=== PATIENT | male | born 1970 | race Caucasian/White ===

== ENCOUNTER → 2020-01-07 | Outpatient (CLI) | payer OTHER ==
[2020-01-07 11:18] LABS: Basophils # (A) 0.1 k/uL (0-0.2); Basophils % (A) 1 %; Eosinophils # (A) 0.2 k/uL (0-0.7); Eosinophils % (A) 4 %; HCT 43.8 % (39.0-53.0); HGB 14.5 gm/dL (13.0-17.5); Lymphocytes # (A) 1.5 k/uL (1.0-4.8); Lymphocytes % (A) 25 %; MCH 34.3 pg (25.0-35.0); MCHC 33.1 g/dL (31.0-37.0); MCV 103.5 fL (80.0-100.0); Macrocytosis Slight; Monocytes # (A) 0.5 k/uL (0-1.0); Monocytes % (A) 8 %; Neutrophils # (A) 3.8 k/uL (1.3-7.7); Neutrophils % (A) 61 %; Platelet Count 177 k/uL (150-450); RBC 4.23 m/uL (4.30-5.90); RDW 12.5 % (11.5-15.5); WBC 6.3 k/uL (3.8-10.6)
[2020-01-07 18:56] LABS: Erythrocyte Sedimentation Rate 8 mm/Hr (0-20)
[2020-01-07 18:58] LABS: African American GFR (CKD) 80.7 (60.0-200.0); Albumin 4.8 g/dL (3.80-4.90); Albumin/Globulin Ratio 1.92 (1.60-3.17); Anion Gap 10.2 mmol/L (4.00-12.00); BUN/Creat Ratio 22.5 Ratio (12.00-20.00); C Reactive Protein 0.4 mg/dL (0.0-0.8); Calcium 9.7 mg/dL (8.7-10.3); Carbon Dioxide 25.8 mmol/L (21.6-31.8); Chol/HDL Ratio 5.14; Globulin 2.5 g/dL (1.6-3.3); LDL Cholesterol,Calculated 195.2 mg/dL (0.0-131.0); Non-African American GFR(CKD) 69.6 (60.0-200.0); Phosphorus 3.4 mg/dL (2.4-5.1); Potassium 4.6 mmol/L (3.5-5.5); Total Bilirubin 0.6 mg/dL (0.3-1.2); Total Protein 7.3 g/dL (6.2-8.2); VLDL Calculation 15.8 mg/dL (5.00-40.00)
[2020-01-07 19:49] LABS: Hemoglobin A1C 5.8 % (4.0-6.0)
== END | disposition home or self-care (01) ==
LOC: LABWHC1 09:30
PROVIDERS: ATTEND Nurse Practitioner Family
DX: I10 Essential (primary) hypertension (principal); R73.9 Hyperglycemia, unspecified; E78.49 Other hyperlipidemia; R53.83 Other fatigue; M35.3 Polymyalgia rheumatica; R19.7 Diarrhea, unspecified; Z20.828 Contact with and (suspected) exposure to other viral communicable diseases
CPT/HCPCS: 80061; 80053; 85652; 84443; 82607; 82150; 83690; 83735; 84100; 85025; 86140; 86431; 82272; 86038; 87045; 87329; 87328; 87046; 83036; 36415; U0003; C9803

== ENCOUNTER → 2020-01-15 | Outpatient (CLI) | payer OTHER ==
[2020-01-15 21:05] LABS: ALT 244 U/L (10-49); AST 158 U/L (14-35); Albumin/Globulin Ratio 1.92 (1.60-3.17); Alkaline Phosphatase 52 U/L (41-126); Bilirubin, Conjugated <0.20 mg/dL (0.20-0.40); Globulin 2.4 g/dL (1.6-3.3); Total Bilirubin 0.4 mg/dL (0.2-1.2)
[2020-01-16 03:16] LABS: Hepatitis A Antibody IgM Non-Reactive (Non-Reactive); Hepatitis B Core IgM Non-Reactive (Non-Reactive); Hepatitis B Surface Antigen Non-Reactive (Non-Reactive); Hepatitis C IgG Antibody Non-Reactive (Non-Reactive)
== END | disposition home or self-care (01) ==
LOC: LABWHC1 12:46
PROVIDERS: ATTEND Nurse Practitioner Family
DX: R79.89 Other specified abnormal findings of blood chemistry (principal); U07.1 COVID-19
CPT/HCPCS: 36415; 80074; 80076

== ENCOUNTER 2020-01-19 07:18 | Day surgery (SDC) | payer OTHER ==
[2020-01-15 10:23] VITALS: BMI 33.0
[~2020-01-19 07:18] MED LIST: LACTATED RINGERS 1,000 ML IV SCH; LIDOCAINE 1% (10MG/ML) FOR IV START INTRADERMA PRN
[2020-01-19 07:38] VITALS: TEMP 97.5
[2020-01-19] MEDS ORDERED: LIDOCAINE 1% INJ 10MG/ML (20 ML MDV) ONE (08:16)
[2020-01-19] MEDS ORDERED: PROPOFOL 10 MG/ML 50 ML VIAL IV ONE (08:16)
[2020-01-19] MEDS ORDERED: IV FLUID CONTINUATION 400 ML IV ONE (08:49)
--- NOTE | 2020-01-19 08:59 | P.PCN ---
Date of Procedure: 01/19/20 Description of Procedure: BRIEF HISTORY: Patient is a 49-year-old male with no prior history of colonoscopy who presents for initial screening for malignant neoplasm in the colon due to a family history of colon cancer in his father. Father was diagnosed with colon cancer at the age of 70. Denies any change in bowel habits, blood per rectum or abdominal pain. He had been having some diarrhea but reports that this resolved after stopping metformin. PROCEDURE PERFORMED: Colonoscopy with polypectomy. PREOPERATIVE DIAGNOSIS: Family history of colon cancer (father diagnosed with colon cancer at 70), diarrhea, no prior colonoscopy. ESTIMATED BLOOD LOSS: Minimal. IV sedation per Anesthesia. PROCEDURE: After informed consent was obtained, the patient, was brought into the endoscopy unit. IV sedation was administered by Anesthesia under continuous monitoring. Digital rectal examination was normal. Initially the Olympus CF-190 flexible video colonoscope was then inserted in the rectum, gradually advanced into the cecum without any difficulty. Careful examination was performed as the scope was gradually being withdrawn. Ileocecal valve and the appendiceal orifice were visualized and appeared normal. Prep was excellent. Mucosa of the cecum, ascending colon, transverse colon, descending colon, sigmoid colon, and rectum appeared normal. 2 diminutive polyps measuring 2 mm in size removed from the ascending colon and the sigmoid colon with cold forcep polypectomy. Multiple small mouth diverticula in the sigmoid colon. Retroflexion was performed in the rectum and no lesions were seen. The patient tolerated the procedure well. IMPRESSION: 2 diminutive polyps removed with cold forcep polypectomy from the sigmoid and ascending colon. Mild sigmoid diverticulosis. RECOMMENDATIONS: Findings of this examination were discussed with the patient. Okay to resume diet. Okay to resume medications. Await pathology from polypectomies. Would recommend repeat colonoscopy in 5 years for family history of colon cancer pending pathology from polypectomies..
[2020-01-19 09:26] VITALS: BP 145/85; PULSE 66; RESP 16
== END 2020-01-19 09:30 | disposition home or self-care (01) ==
LOC: ORWHC2ENDO 07:18
PROVIDERS: ATTEND Internal Medicine
DX: Z12.11 Encounter for screening for malignant neoplasm of colon (principal); D12.2 Benign neoplasm of ascending colon; K63.5 Polyp of colon; K57.30 Diverticulosis of large intestine without perforation or abscess without bleeding; I10 Essential (primary) hypertension; F17.200 Nicotine dependence, unspecified, uncomplicated; E11.9 Type 2 diabetes mellitus without complications; Z79.899 Other long term (current) drug therapy; Z98.890 Other specified postprocedural states; Z87.19 Personal history of other diseases of the digestive system; Z87.828 Personal history of other (healed) physical injury and trauma; Z80.0 Family history of malignant neoplasm of digestive organs
CPT/HCPCS: 88305; 45380; J2001; J2704

== ENCOUNTER → 2020-01-25 | Outpatient (CLI) | payer OTHER ==
[2020-01-25 19:20] LABS: GGT 71 U/L (0-73); LDH 267 U/L (120-246)
== END ==
LOC: LABWHC1 09:41
PROVIDERS: ATTEND Nurse Practitioner Family
DX: E87.8 Other disorders of electrolyte and fluid balance, not elsewhere classified (principal); R94.5 Abnormal results of liver function studies
CPT/HCPCS: 36415; 82105; 82977; 83615

== ENCOUNTER → 2020-02-02 | Outpatient (CLI) | payer OTHER ==
--- NOTE | 2020-02-02 08:24 | US ---
EXAMINATION TYPE: US liver DATE OF EXAM: 02/02/2020 COMPARISON: NONE CLINICAL HISTORY: R94.5 ABN LIVER FUNCTION TEST. EXAM MEASUREMENTS: Liver Length: 16.4 cm Gallbladder Wall: 0.2 cm CBD: 0.4 cm Right Kidney: 11.3 x 6.4 x 5.3 cm Pancreas: Obscured by bowel gas Liver: Echogenic, heterogeneous Gallbladder: wnl Evidence for sonographic Roberts's sign: No CBD: wnl Right Kidney: No hydronephrosis. Hypoechoic area lower pole, possible cyst, measuring 1.7 x 1.6 x 1. 9 cm IMPRESSION: 1. Hepatic steatosis. 2. Probable right renal cyst.
== END ==
LOC: RADUSWWP 07:13
PROVIDERS: ATTEND Family Medicine
DX: K76.0 Fatty (change of) liver, not elsewhere classified (principal)
CPT/HCPCS: 76705

== ENCOUNTER → 2020-05-06 | Outpatient (CLI) | payer OTHER ==
[2020-05-06 10:18] LABS: HCT 43.4 % (39.0-53.0); MCH 32.6 pg (25.0-35.0); MCHC 32.2 g/dL (31.0-37.0); WBC 5.9 k/uL (3.8-10.6)
[2020-05-06 10:19] LABS: Basophils % (A) 0 %; Eosinophils # (A) 0.1 k/uL (0-0.7); Eosinophils % (A) 2 %; Lymphocytes # (A) 1.3 k/uL (1.0-4.8); Lymphocytes % (A) 22 %; Mean Platelet Volume 7.8; Monocytes # (A) 0.5 k/uL (0-1.0); Monocytes % (A) 8 %; Neutrophils # (A) 3.9 k/uL (1.3-7.7); Neutrophils % (A) 66 %; Platelet Count 157 k/uL (150-450)
[2020-05-06 14:38] LABS: ALT 66 U/L (10-49); AST 65 U/L (14-35); African American GFR (CKD) 100.6 (60.0-200.0); Albumin/Globulin Ratio 2.04 (1.60-3.17); Alkaline Phosphatase 48 U/L (41-126); Amylase 41 U/L (23-121); Calcium 9.7 mg/dL (8.7-10.3); Carbon Dioxide 28.9 mmol/L (21.6-31.8); Chloride 103 mmol/L (96-109); Chol/HDL Ratio 4.43; Cholesterol 217 mg/dL (0-200); GGT 23 U/L (0-73); Globulin 2.3 g/dL (1.6-3.3); Glucose 106 mg/dL (70-110); LDH 316 U/L (120-246); Lipase 44 U/L (14-60); Non-African American GFR(CKD) 86.8 (60.0-200.0); Potassium 4.6 mmol/L (3.5-5.5); Sodium 138 mmol/L (135-145); Total Bilirubin 0.7 mg/dL (0.3-1.2); Triglycerides <50.0 mg/dL (0.0-149.0)
== END | disposition home or self-care (01) ==
LOC: LABWHC1 08:33
PROVIDERS: ATTEND Nurse Practitioner Family
DX: I10 Essential (primary) hypertension (principal); K76.0 Fatty (change of) liver, not elsewhere classified; R79.9 Abnormal finding of blood chemistry, unspecified; E55.9 Vitamin D deficiency, unspecified; R53.83 Other fatigue; E78.5 Hyperlipidemia, unspecified; F10.20 Alcohol dependence, uncomplicated
CPT/HCPCS: 36415; 80053; 80061; 82150; 82248; 82306; 82977; 83615; 83690; 84443; 85025

== ENCOUNTER → 2020-08-03 | Outpatient (CLI) | payer OTHER ==
--- NOTE | 2020-08-03 15:47 | XR ---
EXAMINATION TYPE: XR elbow complete LT DATE OF EXAM: 08/03/2020 CLINICAL HISTORY: pain TECHNIQUE: Frontal, lateral and oblique images of the left elbow are obtained. COMPARISON: None. FINDINGS: There is no acute fracture/dislocation evident of the elbow. No abnormal fat pad signs ar e seen. The overlying soft tissue appears unremarkable. IMPRESSION: There is no acute fracture or dislocation of the elbow. ICD 10 NO FRACTURE, INITIAL EVALUATION
== END | disposition home or self-care (01) ==
LOC: RADXRWHC 15:08
PROVIDERS: ATTEND Family Medicine
DX: M25.522 Pain in left elbow (principal)

== ENCOUNTER → 2020-08-03 | Outpatient (CLI) | payer OTHER ==
[2020-08-04 05:00] LABS: Non-African American GFR(CKD) 76.8 (60.0-200.0)
== END | disposition home or self-care (01) ==
LOC: LABWHC1 15:03
PROVIDERS: ATTEND Otolaryngology
DX: Z01.812 Encounter for preprocedural laboratory examination (principal)
CPT/HCPCS: 36415; 82565; 84520

== ENCOUNTER → 2020-08-12 | Outpatient (CLI) | payer OTHER ==
[2020-08-12 17:11] LABS: African American GFR (CKD) 99.8 (60.0-200.0); Albumin/Globulin Ratio 2.08 (1.60-3.17); Anion Gap 6.7 mmol/L (4.00-12.00); Calcium 9.6 mg/dL (8.7-10.3); Carbon Dioxide 29.3 mmol/L (21.6-31.8); Globulin 2.4 g/dL (1.6-3.3); Non-African American GFR(CKD) 86.2 (60.0-200.0); Potassium 5.1 mmol/L (3.5-5.5); Total Bilirubin 0.3 mg/dL (0.3-1.2); Total Protein 7.4 g/dL (6.2-8.2)
[2020-08-12 19:20] LABS: Hemoglobin A1C 5.5 % (4.0-6.0)
== END | disposition home or self-care (01) ==
LOC: LABWHC1 09:29
PROVIDERS: ATTEND Nurse Practitioner Family
DX: E11.69 Type 2 diabetes mellitus with other specified complication (principal); K76.0 Fatty (change of) liver, not elsewhere classified
CPT/HCPCS: 36415; 80053; 82150; 82977; 83036; 83690

== ENCOUNTER → 2021-05-03 | Outpatient (CLI) | payer OTHER ==
[2021-05-03 21:13] LABS: Basophils # (A) 0.02 X 10*3/uL (0.00-0.10); Basophils % (A) 0.3 %; Eosinophils # (A) 0.12 X 10*3/uL (0.04-0.35); Eosinophils % (A) 2.1 %; HGB 14.4 g/dL (13.0-17.0); Lymphocytes # (A) 1.59 X 10*3/uL (0.90-5.00); Lymphocytes % (A) 27.3 %; MCH 32.7 pg (27.0-32.0); MCHC 32.7 g/dL (32.0-37.0); Mean Platelet Volume 10.9 fL (9.5-12.2); Monocytes # (A) 0.48 X 10*3/uL (0.20-1.00); Monocytes % (A) 8.2 %; Neutrophils # (A) 3.61 X 10*3/uL (1.80-7.70); Neutrophils % (A) 61.9 %; Platelet Count 204 X 10*3/uL (140-440); RDW 13.5 % (11.5-14.5); WBC 5.83 X 10*3/uL (4.50-10.00)
[2021-05-03 22:33] LABS: Erythrocyte Sedimentation Rate 4 mm/Hr (0-20)
[2021-05-04 04:53] LABS: ALT 39 U/L (10-49); AST 33 U/L (14-35); African American GFR (CKD) 113.4 (60.0-200.0); Albumin 4.9 g/dL (3.8-4.9); Albumin/Globulin Ratio 1.96 (1.60-3.17); Alkaline Phosphatase 60 U/L (41-126); BUN/Creat Ratio 24.44 Ratio (12.00-20.00); Chloride 103 mmol/L (96-109); Chol/HDL Ratio 4.83 Ratio; Globulin 2.5 g/dL (1.6-3.3); Glucose 117 mg/dL (70-110); LDL Cholesterol,Calculated 183.2 mg/dL (0.0-131.0); Non-African American GFR(CKD) 97.9 (60.0-200.0); Potassium 4.9 mmol/L (3.5-5.5); Sodium 142 mmol/L (135-145); Total Protein 7.4 g/dL (6.2-8.2); VLDL Calculation 14.98 mg/dL (5.00-40.00)
[2021-05-04 06:01] LABS: C Reactive Protein <0.30 mg/dL (0.00-0.80)
== END | disposition home or self-care (01) ==
LOC: LABWHC1 11:19
PROVIDERS: ATTEND Internal Medicine
DX: I10 Essential (primary) hypertension (principal); E78.5 Hyperlipidemia, unspecified; E55.9 Vitamin D deficiency, unspecified; Z96.611 Presence of right artificial shoulder joint
CPT/HCPCS: 36415; 80053; 80061; 82306; 84443; 85025; 85652; 86140

== ENCOUNTER → 2021-06-16 | Outpatient (CLI) | payer OTHER ==
--- NOTE | 2021-06-16 12:18 | NM ---
EXAMINATION TYPE: NM bone 3 phase DATE OF EXAM: 06/16/2021 COMPARISON: NONE HISTORY: Right shoulder pain, prior shoulder surgery. Triple phase bone scintigraphy was performed following the injection of 21.0 mCi Tc 99m MDP. Immedia te images and 3.5 hours post injection images acquired. Imaging is acquired of the thorax focusing on the right shoulder. FINDINGS: Dynamic arterial along with soft tissue phase imaging shows no suspicious increased radiotracer uptak e to the right shoulder region versus opposite left side. Lucency from prosthesis seen on blood pool and delayed phase imaging. Delayed imaging shows some increased radiotracer uptake surrounding the me tallic component proximal humerus fairly diffusely which is nonspecific finding. IMPRESSION: No increased three-phase radiotracer uptake surrounding metallic right shoulder prosthesi s to suggest infection.
== END | disposition home or self-care (01) ==
LOC: RADNMMAIN 07:34
DX: M25.511 Pain in right shoulder (principal); Z96.611 Presence of right artificial shoulder joint
CPT/HCPCS: 78315; A9503

== ENCOUNTER → 2021-08-23 | Outpatient (CLI) | payer OTHER ==
[2021-08-23 14:57] LABS: ALT 32 U/L (10-49); AST 35 U/L (14-35); African American GFR (CKD) 99.1 (60.0-200.0); Albumin 4.7 g/dL (3.8-4.9); Albumin/Globulin Ratio 1.96 (1.60-3.17); Alkaline Phosphatase 60 U/L (41-126); Calcium 9.8 mg/dL (8.7-10.3); Chloride 103 mmol/L (96-109); Chol/HDL Ratio 4.47 Ratio; Globulin 2.4 g/dL (1.6-3.3); Glucose 106 mg/dL (70-110); LDL Cholesterol,Calculated 158.2 mg/dL (0.0-131.0); Non-African American GFR(CKD) 85.5 (60.0-200.0); Potassium 5.1 mmol/L (3.5-5.5); Sodium 141 mmol/L (135-145); Total Protein 7.1 g/dL (6.2-8.2); VLDL Calculation 10.16 mg/dL (5.00-40.00)
[2021-08-23 15:03] LABS: Basophils # (A) 0.02 X 10*3/uL (0.00-0.10); Basophils % (A) 0.4 %; Eosinophils # (A) 0.16 X 10*3/uL (0.04-0.35); Eosinophils % (A) 2.9 %; HCT 40.5 % (39.6-50.0); HGB 13.4 g/dL (13.0-17.0); Immature Grans, Automated 0.2 %; Lymphocytes # (A) 1.57 X 10*3/uL (0.90-5.00); Lymphocytes % (A) 28.8 %; MCH 32.7 pg (27.0-32.0); MCHC 33.1 g/dL (32.0-37.0); MCV 98.8 fL (80.0-97.0); Mean Platelet Volume 11.2 fL (9.5-12.2); Monocytes # (A) 0.46 X 10*3/uL (0.20-1.00); Monocytes % (A) 8.4 %; NRBC Per 100 WBC 0 /100 WBCS (0.0-0.0); Neutrophils # (A) 3.24 X 10*3/uL (1.80-7.70); Neutrophils % (A) 59.3 %; Platelet Count 177 X 10*3/uL (140-440); WBC 5.46 X 10*3/uL (4.50-10.00)
== END | disposition home or self-care (01) ==
LOC: LABWHC1 08:53
PROVIDERS: ATTEND Internal Medicine
DX: E55.9 Vitamin D deficiency, unspecified (principal); E78.5 Hyperlipidemia, unspecified; I10 Essential (primary) hypertension
CPT/HCPCS: 36415; 80053; 80061; 82306; 84443; 85025

== ENCOUNTER → 2021-11-22 | Outpatient (CLI) | payer OTHER ==
[2021-11-22 14:59] LABS: Basophils # (A) 0.03 X 10*3/uL (0.00-0.10); Basophils % (A) 0.5 %; Eosinophils # (A) 0.11 X 10*3/uL (0.04-0.35); Eosinophils % (A) 1.8 %; HCT 43.1 % (39.6-50.0); Immature Grans, Automated 0.3 %; Lymphocytes # (A) 1.83 X 10*3/uL (0.90-5.00); Lymphocytes % (A) 29.3 %; MCH 31.7 pg (27.0-32.0); MCHC 32.5 g/dL (32.0-37.0); MCV 97.7 fL (80.0-97.0); Mean Platelet Volume 10.9 fL (9.5-12.2); Monocytes # (A) 0.53 X 10*3/uL (0.20-1.00); Monocytes % (A) 8.5 %; NRBC Per 100 WBC 0 /100 WBCS (0.0-0.0); Neutrophils # (A) 3.73 X 10*3/uL (1.80-7.70); Neutrophils % (A) 59.6 %; Platelet Count 215 X 10*3/uL (140-440); RBC 4.41 X 10*6/uL (4.40-5.60); RDW 12.6 % (11.5-14.5); WBC 6.25 X 10*3/uL (4.50-10.00)
[2021-11-22 15:40] LABS: BUN/Creat Ratio 18.85 Ratio (12.00-20.00); Chol/HDL Ratio 4.14 Ratio; Globulin 2.8 g/dL (1.6-3.3); LDL Cholesterol,Calculated 147.2 mg/dL (0.0-131.0)
[2021-11-22 15:41] LABS: ALT 34 U/L (10-49); AST 39 U/L (14-35); African American GFR (CKD) 94.6 (60.0-200.0); Albumin 4.8 g/dL (3.8-4.9); Albumin/Globulin Ratio 1.69 (1.60-3.17); Alkaline Phosphatase 66 U/L (41-126); Blood Urea Nitrogen 19.6 mg/dL (9.0-27.0); Carbon Dioxide 27.7 mmol/L (20.0-27.5); Chloride 103 mmol/L (96-109); Glucose 91 mg/dL (70-110); Non-African American GFR(CKD) 81.6 (60.0-200.0); Potassium 4.5 mmol/L (3.5-5.5); Sodium 141 mmol/L (135-145); Total Protein 7.6 g/dL (6.2-8.2)
== END | disposition home or self-care (01) ==
LOC: LABWHC1 07:55
PROVIDERS: ATTEND Nurse Practitioner Family
DX: I10 Essential (primary) hypertension (principal); E78.5 Hyperlipidemia, unspecified; E55.9 Vitamin D deficiency, unspecified; E53.8 Deficiency of other specified B group vitamins; R73.9 Hyperglycemia, unspecified
CPT/HCPCS: 36415; 80053; 80061; 82306; 82607; 82746; 83036; 84443; 85025

== ENCOUNTER → 2021-12-28 | Outpatient (CLI) | payer OTHER ==
--- NOTE | 2021-12-29 20:24 | CT ---
EXAMINATION TYPE: CT chest w con DATE OF EXAM: 12/28/2021 COMPARISON: None available HISTORY: Multiple lung nodules. CT DLP: 423.8 mGycm Automated exposure control for dose reduction was used. TECHNIQUE: CT scan of the chest is performed with IV Contrast, patient injected with 70ml mL of Isovue 300. FINDINGS: LUNGS: Elongated 8mm nodule along the transverse fissure, likely representing a fissural lymph node. 5 mm slightly irregular nodule in the right lung base. Grossly unremarkable lungs otherwise. Patent t rachea and main bronchi. No pleural effusion. MEDIASTINUM: There are no greater than 1 cm hilar or mediastinal lymph nodes. No cardiomegaly. Coron marty and arterial atherosclerotic calcifications. No pericardial effusion is seen. OTHER: Left renal cyst without gross suspicious feature. Gastrohepatic and peripancreatic subcentime ter lymph nodes, nonspecific. Right proximal humeral prosthesis. No aggressive bone lesion. IMPRESSION: 8mm right transverse fissure nodule, likely representing a fissural lymph node. Slightly irregular 5 mm node in the right lung base, nonspecific. Recommend correlation with previous unavailable CT scan. If not possible, follow-up CT scan in 3-6 months is advised. Other findings as described above.
== END | disposition home or self-care (01) ==
LOC: RADCTMAIN 14:25
PROVIDERS: ATTEND Internal Medicine
DX: R91.8 Other nonspecific abnormal finding of lung field (principal)
CPT/HCPCS: 71260; Q9967

== ENCOUNTER → 2022-01-10 | Outpatient (CLI) | payer OTHER ==
--- NOTE | 2022-01-11 03:42 | MR ---
EXAMINATION TYPE: MR shoulder LT wo con DATE OF EXAM: 01/10/2022 COMPARISON: None HISTORY: Left shoulder pain and limited range of motion Multiplanar multiecho imaging of the left shoulder with no contrast. FINDINGS: There is some thickening of the subscapularis tendon near the anterior glenoid labrum. The biceps ten don is intact. There is mild shoulder joint effusion. There is extensive spurring at the AC joint wit h subacromial impingement. There are small full-thickness tears of the supraspinatus tendon anteriorl y. There is no retraction. There is moderate impingement on the supraspinatus tendon muscle by the AC joint spur formation. The humeral head is intact. There is some mild deformity of the anterior glenoid labrum with some rou nding of the anterior surface. The infraspinatus tendon is intact. IMPRESSION: Moderate spurring at the AC joint with subacromial impingement. Full-thickness small tears of the sup raspinatus tendon without retraction. Mild deformity anterior glenoid labrum consistent with old tear. There is also some thickening and in creased signal of the subscapularis tendon suggestive of tendinitis and partial tear. Shoulder joint minimal effusion.
== END | disposition home or self-care (01) ==
LOC: RADMRIMAIN 21:26
PROVIDERS: ATTEND Internal Medicine
DX: M75.102 Unspecified rotator cuff tear or rupture of left shoulder, not specified as traumatic (principal)

== ENCOUNTER → 2022-06-26 | Outpatient (CLI) | payer OTHER ==
--- NOTE | 2022-06-26 13:53 | CT ---
EXAMINATION TYPE: CT chest wo con CT DLP: 614 mGycm, Automated exposure control for dose reduction was used. DATE OF EXAM: 06/26/2022 1:33 PM COMPARISON: CT chest 12/28/2021. CLINICAL INDICATION:Male, 52 years old with history of R91.8 PULMONARY NODULE; PHH, Pulmonary nodule. TECHNIQUE: Multiple axial images were obtained through the chest without IV contrast. Lack of IV or o ral contrast limits evaluation of solid and hollow organ viscera. FINDINGS: LUNGS/ PLEURA: Stable elongated 8 mm groundglass nodule in the right middle lobe adjacent to the annette r fissure (series 4, image 41). Stable right lower lobe 4 mm pulmonary nodule (series 4, image 63). N ew pulmonary nodule within the right upper lobe (series 4, image 28). No pneumothorax, pleural effusi on, or focal consolidation. AIRWAY: Patent and unremarkable.. HEART: Size within normal limits. No pericardial effusion. Mild to moderate coronary arterial calcifi cations. MEDIASTINUM: No gross evidence of adenopathy. VASCULATURE: No aortic aneurysm. MUSCULOSKELETAL: No acute osseous abnormalities . Postsurgical changes of the right shoulder with pro sthesis. This creates streak artifact which limits evaluation. SOFT TISSUES/LYMPH NODES: Unremarkable. LOWER NECK: No significant findings. UPPER ABDOMEN: No significant findings. IMPRESSION: Stable right middle lobe and right lower lobe pulmonary nodules with new 3 mm right upper lobe pulmon marty nodule. Follow-up CT chest in 1 year is recommended.
== END | disposition home or self-care (01) ==
LOC: RADCTMAIN 13:16
PROVIDERS: ATTEND Internal Medicine Pulmonary Disease
DX: R91.8 Other nonspecific abnormal finding of lung field (principal)
CPT/HCPCS: 71250

== ENCOUNTER → 2022-07-07 | Outpatient (CLI) | payer OTHER ==
[2022-07-07 16:41] LABS: Basophils # (A) 0.04 X 10*3/uL (0.00-0.10); Basophils % (A) 0.7 %; Eosinophils # (A) 0.15 X 10*3/uL (0.04-0.35); Eosinophils % (A) 2.6 %; HCT 43.6 % (39.6-50.0); HGB 14.4 g/dL (13.0-17.0); Immature Grans, Automated 0.5 %; Lymphocytes # (A) 1.67 X 10*3/uL (0.90-5.00); Lymphocytes % (A) 29.3 %; MCH 32.4 pg (27.0-32.0); Mean Platelet Volume 10.3 fL (9.5-12.2); Monocytes % (A) 10.5 %; NRBC Per 100 WBC 0 /100 WBCS (0.0-0.0); Neutrophils # (A) 3.21 X 10*3/uL (1.80-7.70); Neutrophils % (A) 56.4 %; Platelet Count 242 X 10*3/uL (140-440); RBC 4.45 X 10*6/uL (4.40-5.60); RDW 13.5 % (11.5-14.5)
[2022-07-07 17:15] LABS: ALT 27 U/L (10-49); AST 30 U/L (14-35); African American GFR (CKD) 87.7 (60.0-200.0); Albumin 4.9 g/dL (3.8-4.9); Albumin/Globulin Ratio 2.04 (1.60-3.17); Alkaline Phosphatase 65 U/L (41-126); BUN/Creat Ratio 18.55 Ratio (12.00-20.00); Blood Urea Nitrogen 20.4 mg/dL (9.0-27.0); Calcium 9.9 mg/dL (8.7-10.3); Carbon Dioxide 28.8 mmol/L (20.0-27.5); Chloride 103 mmol/L (96-109); Chol/HDL Ratio 3.37 Ratio; Globulin 2.4 g/dL (1.6-3.3); Glucose 92 mg/dL (70-110); LDL Cholesterol,Calculated 137.2 mg/dL (0.0-131.0); Non-African American GFR(CKD) 75.7 (60.0-200.0); Potassium 4.9 mmol/L (3.5-5.5); Sodium 142 mmol/L (135-145); Total Protein 7.3 g/dL (6.2-8.2); VLDL Calculation 16.76 mg/dL (5.00-40.00)
== END | disposition home or self-care (01) ==
LOC: LABWHC1 10:03
PROVIDERS: ATTEND Internal Medicine
DX: I10 Essential (primary) hypertension (principal); E55.9 Vitamin D deficiency, unspecified; E78.5 Hyperlipidemia, unspecified
CPT/HCPCS: 36415; 80053; 80061; 82306; 84443; 85025